=== PATIENT | female | born 1985 | race Caucasian/White ===

== ENCOUNTER 2017-05-06 20:05 | Emergency (ER) | payer BC, MEDICAID ==
[~2017-05-06] VITALS: Ht 172.7 cm; Wt 81.8 kg
[2017-05-06 20:22] VITALS: BP 159/111
[2017-05-06] MEDS ORDERED: HYDR-3686 PO (22:18)
== END 2017-05-06 22:47 | disposition home or self-care (01) ==
LOC: ER 20:06
DX: F43.29 Adjustment disorder with other symptoms (principal); F41.9 Anxiety disorder, unspecified; F32.9 Major depressive disorder, single episode, unspecified; F17.200 Nicotine dependence, unspecified, uncomplicated
CPT/HCPCS: 99284